=== PATIENT | male | born 1975 | race Caucasian/White ===

== ENCOUNTER 2019-10-13 10:48 | Emergency (ER) | payer OTHER, SELFPAY ==
--- NOTE | ~2019-10-13 | XR_ITS ---
EXAMINATION: XR ankle RT min 3V EXAM DATE: 10/13/2019 11:41 INDICATION: Initial encounter following injury, with pain of the right ankle. TECHNIQUE: Right ankle frontal, lateral and oblique projections obtained and reviewed. There is no p rior study for comparison. FINDINGS: The right ankle mortise appears intact. There are no acute fractures or dislocations iden tified. There is no subcutaneous gas. The soft tissue is unremarkable. There are no radiopaque fo reign bodies. IMPRESSION: No acute osseous findings. Reviewed, dictated and finalized at location B. IMPRESSION: No acute osseous findings.
[2019-10-13 11:05] VITALS: BP 130/72; PULSE 76; RESP 20; TEMP 36.6; O2SAT 98
--- NOTE | 2019-10-13 12:02 | ED.LOWEXIN ---
HPI - Extremity Injury (Lower) General Chief Complaint: Extremity Injury, Lower Stated Complaint: Ankle Time Seen by Provider: 10/13/19 10:57 Source: patient Mode of arrival: ambulatory Limitations: no limitations History of Present Illness HPI Narrative: Patient is a 44-year-old male who presents with right ankle injury that occurred last night patient rolled the ankle while ambulating patient notes moderate aching pain to the right anterior lateral aspect of the ankle denies other injuries or complaints patient on arrival resting comfortably in the room patient has not taken anything for his symptoms patient is able to bear weight but with considerable pain Related Data Allergies Allergy/AdvReac Type Severity Reaction Status Date / Time No Known Allergies Allergy Verified 10/13/19 11:07 Review of Systems Review of Systems: Narrative: CONSTITUTIONAL: Denies fever, chills, or sweats. EYES: Denies redness, or discharge. ENT: Denies rhinorrhea, congestion, sore throat, or otalgia. CARDIOVASCULAR: Denies chest pain, palpitations, or edema. RESPIRATORY: Denies cough or dyspnea. SKIN: Positive for bruising and swelling MUSCULOSKELETAL: Positive for right ankle pain NEUROLOGIC: Denies numbness, tingling Exam Narrative: Exam Narrative: GENERAL: Well-appearing, well-nourished, and in no acute distress. HEAD: Normocephalic, atraumatic. EYES: PERRLA and EOMI. ENT: Nares clear, no rhinorrhea or epistaxis. Mucous membranes moist. CHEST: Clear to auscultation. No respiratory distress. No wheezes rales or rhonchi HEART: Regular rate and rhythm. No murmur heard. EXTREMITIES: Tenderness of anterior right lateral ankle minimal swelling noted SKIN: Warm, dry, no rash. NEURO: No focal deficits. Alert and oriented x3. Neurovascularly intact. PSYCH: Normal mood and affect. Course Course Emergency Course: Patient in the room aware of case findings treatment plan and diagnosis agreeing to follow-up as directed or to return if symptoms worsen or concerns Vital Signs Vital signs: Vital Signs Temperature 97.9 F 10/13/19 11:05 Pulse Rate 76 10/13/19 11:05 Respiratory Rate 20 10/13/19 11:05 Blood Pressure 130/72 10/13/19 11:05 Pulse Oximetry 98 10/13/19 11:05 Temperature 97.9 F 10/13/19 11:05 Pulse Rate 76 10/13/19 11:05 Respiratory Rate 20 10/13/19 11:05 Blood Pressure 130/72 10/13/19 11:05 Pulse Oximetry 98 10/13/19 11:05 MDM - Extremity Injury (Lower) MDM Narrative Medical decision making narrative: Patients injury or pain is consistent with musculoskeletal etiology. No signs of neurological or vascular compromise on exam. Compartments and tisues are soft without signs of compartment syndrome. Pain is felt appropriate for further evaluation on an outpatient basis. Imaging Data Radiologist's impression: ITS Impressions Ankle X-Ray 10/13/19 11:43 IMPRESSION: No acute osseous findings. Discharge Plan Discharge Clinical Impression: Ankle sprain and strain Patient Disposition: Home, Self-Care Condition: Stable Instructions: Antibiotic Form, Ankle Strain (ED) Additional Instructions: Wear brace and use crutches. No weight on the affected leg until able to bear weight without pain. Ice and elevate extremity. Pain medication as needed and directed. Follow up with your doctor for further care in the next 7 days. Return if symptoms worsen or concerns Prescriptions: New naproxen 500 mg tablet 500 mg PO TID PRN (Reason: pain) Qty: 7 RF: 0 Follow-up/Referrals: Nicolas,LEE Erickson [Primary Care Provider] - Stand Alone Forms: Work/School Release IP
[2019-10-13 12:44] VITALS: BP 124/74; PULSE 70; RESP 20; TEMP 36.7; O2SAT 99
== END 2019-10-13 12:20 | disposition home or self-care (01) ==
PROVIDERS: Emergency Provider Emergency Medicine; PCP Physician Assistant
DX: S93.401A Sprain of unspecified ligament of right ankle, initial encounter (principal); S96.911A Strain of unspecified muscle and tendon at ankle and foot level, right foot, initial encounter; X50.9XXA Other and unspecified overexertion or strenuous movements or postures, initial encounter
CPT/HCPCS: 73610; 99283

== ENCOUNTER 2020-03-14 09:07 | Emergency (ER) | payer OTHER, SELFPAY ==
[2020-03-14 09:15] VITALS: BP 129/75; PULSE 90; RESP 16; TEMP 36.4; O2SAT 96
--- NOTE | 2020-03-14 09:22 | ED.SKABFB ---
HPI - Skin/Abscess/Foreign Bdy General Chief complaint: Skin/Abscess/Foreign Body Stated complaint: Rash Source: patient Mode of arrival: ambulatory Limitations: no limitations History of Present Illness HPI narrative: Patient is a 45-year-old male who presents complaining of poison brittnee to bilateral arms. Patient was helping a neighbor move a cat up tree, which had poison brittnee on it. Patient reports pruritic rash to bilateral arms x3 days. He has been using topical hydrocortisone and taking Benadryl with little relief. He denies all other complaints. MD complaint: rash Related Data Home Medications Medication Instructions Recorded Confirmed montelukast [Singulair] 10 mg PO DAILY 03/14/20 03/14/20 trazodone 100 mg PO HS 03/14/20 03/14/20 Allergies Allergy/AdvReac Type Severity Reaction Status Date / Time No Known Allergies Allergy Verified 03/14/20 09:18 Review of Systems Review of Systems: Narrative: CONSTITUTIONAL: Denies fever, chills, or sweats. EYES: Denies visual changes, redness, or discharge. ENT: Denies rhinorrhea, congestion, sore throat, or otalgia. CARDIOVASCULAR: Denies chest pain, palpitations, or edema. RESPIRATORY: Denies cough or dyspnea. GASTROINTESTINAL: Denies abdominal pain, nausea, vomiting, or diarrhea. GENITOURINARY: Denies dysuria or hematuria. SKIN: Reports pruritic rash to bilateral forearms arms MUSCULOSKELETAL: Denies back pain, joint pain, or myalgia. NEUROLOGIC: Denies headache, numbness, dizziness, or weakness. PSYCHIATRIC: Denies anxiety or depression. [facility] Family History Family History (Updated 03/14/20 @ 09:25 by ANA Vilchis) Other No significant family history Social History Social History Smoking status: Never smoker Second hand tobacco smoke exposure: No Alcohol intake: current Substance use: never Substance use type: does not use Gender identity (if verbalized by the patient): Male Exam Narrative: Exam Narrative: GENERAL: Well-appearing, well-nourished, and in no acute distress. HEAD: Normocephalic, atraumatic. EYES: No redness or drainage. Conjunctiva are normal. ENT: Mucous membranes pink and moist. CHEST: No respiratory distress. EXTREMITIES: Normal range of motion. SKIN: Erythematous, pruritic, intermittent linear rash to bilateral forearms NEURO: No focal deficits. Alert and oriented x3. Gait steady. PSYCH: Normal affect. No signs of depression or anxiety. Course Vital Signs Vital signs: Vital Signs Temperature 36.4 C L 03/14/20 09:15 Pulse Rate 90 03/14/20 09:15 Respiratory Rate 16 03/14/20 09:15 Blood Pressure 129/75 03/14/20 09:15 Pulse Oximetry 96 03/14/20 09:15 Temperature 36.4 C L 03/14/20 09:15 Pulse Rate 90 03/14/20 09:15 Respiratory Rate 16 03/14/20 09:15 Blood Pressure 129/75 03/14/20 09:15 Pulse Oximetry 96 03/14/20 09:15 Reviewed. Patient has been instructed to follow-up with his PCP regarding his blood pressure. MDM - Skin/Abscess/Foreign Bdy MDM Narrative Medical decision making narrative: Patient appears to have a contact dermatitis rash from poison brittnee. Patient to be prescribed triamcinolone cream. Differential Diagnosis Differential diagnosis: Likely viral exanthem, urticaria, cellulitis, eczema and contact dermatitis Critical Care Time Critical Care Time Critical Care Time: No Discharge Plan Discharge Clinical Impression: Contact dermatitis Qualifiers: Contact dermatitis type: irritant Contact dermatitis trigger: non-food plants Qualified Code(s): L24.7 - Irritant contact dermatitis due to plants, except food Patient Disposition: Home, Self-Care Condition: Stable Instructions: Poison Brittnee (ED) Additional Instructions: Use cream as directed. Follow-up with your PCP as needed. Prescriptions: New triamcinolone acetonide 0.5 % cream 1 applic topical BID Qty: 15 RF: 0 No Action tra
== END 2020-03-14 09:31 | disposition home or self-care (01) ==
PROVIDERS: Emergency Provider Nurse Practitioner; PCP Physician Assistant
DX: L24.7 Irritant contact dermatitis due to plants, except food (principal)
CPT/HCPCS: 99213; G0463

== ENCOUNTER 2020-12-04 11:19 | Emergency (ER) | payer OTHER, SELFPAY ==
[2020-12-04 11:29] VITALS: BP 135/55; PULSE 88; RESP 16; TEMP 36.6; O2SAT 99
--- NOTE | 2020-12-04 12:00 | ED.SKABFB ---
HPI - Skin/Abscess/Foreign Bdy General Chief complaint: Skin/Abscess/Foreign Body Stated complaint: Laceration on tip of finger on rt hand History of Present Illness HPI narrative: This is a 45-year-old male comes in complaining of cutting his finger on the refrigerator on some still object and he cannot get it to stop bleeding. According to patient he has had a tetanus shot at his primary care providers about a year ago. Related Data Home Medications Medication Instructions Recorded Confirmed montelukast [Singulair] 10 mg PO DAILY 03/14/20 12/04/20 trazodone 100 mg PO HS 03/14/20 12/04/20 Allergies Allergy/AdvReac Type Severity Reaction Status Date / Time No Known Allergies Allergy Verified 12/04/20 11:37 Review of Systems Review of Systems: CONSTITUTIONAL: Denies fever, chills, or sweats. EYES: Denies visual changes, redness, or discharge. ENT: Denies rhinorrhea, congestion, sore throat, or otalgia. CARDIOVASCULAR:Denies chest pain, palpitations, or edema. RESPIRATORY: Denies cough or dyspnea. GASTROINTESTINAL: Denies abdominal pain, nausea, vomiting, or diarrhea. GENITOURINARY: Denies dysuria or hematuria. SKIN:[Denies rash or itching. Right index finger laceration MUSCULOSKELETAL:Denies back pain, joint pain, or myalgia. NEUROLOGIC: Denies headache, numbness, or weakness. PSYCHIATRIC:Denies anxiety or depression PMFSH Family History Family History (Updated 03/14/20 @ 09:25 by ANA Vilchis) Other No significant family history Social History Social History Smoking status: Never smoker Second hand tobacco smoke exposure: No Alcohol intake: current Substance use: never Substance use type: does not use Gender identity (if verbalized by the patient): Male Comments At time as signature, I have reviewed and agree with nursing past medical, social, surgical and family history. Please see nursing chart for further information. There is no relevant family history pertinent to the presenting complaint. Exam Narrative: GENERAL:Well-appearing, well-nourished, and in no acute distress. HEAD:Normocephalic, atraumatic. EYES: PERRLA and EOMI. ENT: Nares clear, no rhinorrhea or epistaxis. Mucous membranes moist. NECK: Supple. CHEST: Clear to auscultation. No respiratory distress. HEART: Regular rate and rhythm. No murmur heard. Normal peripheral pulses. ABDOMEN: Soft, nontender, nondistended, normal active bowel sounds. EXTREMITIES: Normal range of motion. No edema. Left index finger with a small laceration SKIN: Warm, dry, no rash. NEURO: No focal deficits. Alert and oriented x3. 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 No tetanus needed Vital Signs Vital signs: Vital Signs Temperature 97.8 F 12/04/20 11:29 Pulse Rate 88 12/04/20 11:29 Respiratory Rate 16 12/04/20 11:29 Blood Pressure 135/55 L 12/04/20 11:29 Pulse Oximetry 99 12/04/20 11:29 Temperature 97.8 F 12/04/20 11:29 Pulse Rate 88 12/04/20 11:29 Respiratory Rate 16 12/04/20 11:29 Blood Pressure 135/55 L 12/04/20 11:29 Pulse Oximetry 99 12/04/20 11:29 Procedures Laceration Laceration 1: Date: 12/04/20 Time: 11:30 Site: hand Side (If applicable): left Description: linear Depth: simple, single layer Local Anesthetic: none Pre-repair: wound explored and irrigated ====== Skin Level ====== Skin layer closed with: dermabond ====== Subcutaneous Layer ====== ====== Muscle Layer ====== ====== Tendon Layer ====== Dressing: Cleansed with Betadine and saline applied some Dermabond and tube patient tolerated well finger splint given so patient does not bump the finger or reinjury MDM - Skin/Abscess/Foreign Bdy Differential Diagnosis Differential diagnosis: Likely abscess of skin or subcutaneous tissue and other (Laceration) Discharge Plan Discharge Clin
== END 2020-12-04 12:17 | disposition home or self-care (01) ==
PROVIDERS: Emergency Provider Nurse Practitioner Family; PCP Physician Assistant
DX: S61.210A Laceration without foreign body of right index finger without damage to nail, initial encounter (principal); W45.8XXA Other foreign body or object entering through skin, initial encounter
CPT/HCPCS: 12001; 99213; G0463

== ENCOUNTER 2021-11-05 11:00 | Outpatient (RCR) | payer OTHER, SELFPAY ==
--- NOTE | 2021-09-13 15:57 | OTOPEVAL ---
OCCUPATIONAL THERAPY INITIAL EVALUATION REPORT 09/13/21 Thank you for referring Maik Mcguire to [facility].? The patient is scheduled to be seen for therapy? 1-2x/week for 4 weeks. Please review, sign, date and return this plan of care RIO. I agree with and certify that the following plan of care is medically necessary. Referring Physician Date Referring Provider: Fitz Chow, *OT Outpatient Evaluation Start: 09/13/21 14:43 Outpatient Past Medical History Neurological History Hx Other Neurological Disorders Yes: insomnia HEENT History Hx Tonsillectomy Yes Hx Other HEENT Disorders Yes: sinuses Evaluation Information Problem Diagnosis Traumatic dislocation, PIP joint Additional Evaluation Detail Initial injury ~2 months ago. Delay in seeking medical attention. Surgery was 1 month after injury. Subjective Information Patient underwent ORIF of the Query Text:As Reported By Patient/ ring finger PIP joint. He had Family a percutaneous pin as well as screws placed to stabilize the joint about a month ago. Pin was removed 09/10/21. He presents today with a PIP extension block splint donned. Patient has returned back to work - states its going okay, does a lot of computer work, no manual labor. States he is eager to get back to the gym. He has been doing household tasks left handed. 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 Hand Dominance Right Pain Assessment Timing of Pain Assessment Timing of Pain Assessment Assessment Pain Scale Pain Scale Used Numeric (1 - 10) Self Report Pain Assessment Right Finger, Ring Reported Pain Level 2 Pain Description Aching,Soreness Pain Frequency Continuous Lowest Pain Intensity 2 Greatest Pain Intensity 4 Pain Score Pain Score 2: Self Report Interventions Used Interventions Used By Clinicians Education,Exercise Upper Extremity Range of Motion Wrist Range of Motion Right Wrist Flexion - Active 45 Wrist Extension - Active 55 Finger Range of Motion Right Index Finger MCP Joint Flexion - Active 85 Index Finger PIP Joint Flexion - Active 90 Index Finger DIP Joint Flexion - Active 75 Index Finger Tip to Base of Palm - 0 Active
--- NOTE | 2021-09-24 08:26 | PCOTNOTE ---
Patient did not show up for scheduled appointment this date. Called patient and unable to leave a voicemail due to the voicemail box being full.
--- NOTE | 2021-10-03 10:59 | PCOTNOTE ---
Patient did not show up for scheduled appointment this date. Called patient and informed him of his next appt, Thursday. Stated that if he does not show he will be discharged.
--- NOTE | 2021-10-10 11:36 | OTOPEVAL ---
OCCUPATIONAL THERAPY RE-EVALUATION REPORT AND POC UPDATE 10/10/21 Maik is a 46 year-old, right handed male who presents to outpatient hand therapy following closed traumatic dislocation of the right ring finger PIP joint. He is s/p percutaneous pinning as well as ORIF with screws. Therapy has been focusing on improving functional flexibility of the right hand through active/passive ROM, thermal modalities, scar mobilization, and manual therapy. As described below, he is making steady progress toward a functional fist. He continues to have residual stiffness and will benefit from continued skilled treatment to facilitate optimal return of functional hand use. Thank you for referring Maik Mcguire to [facility].? The patient is scheduled to be seen for therapy?1x/week for 3 weeks. Please review, sign, date and return this plan of care RIO. I agree with and certify that the following plan of care is medically necessary. 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 Query Text:As Reported By Patient/ He states I can actually grab Family things now. He reports that he continues to have residual stiffness. Pain Assessment Timing of Pain Assessment Timing of Pain Assessment Assessment Pain Scale Pain Scale Used Numeric (1 - 10) Self Report Pain Assessment Right Finger, Ring Reported Pain Level 0 Lowest Pain Intensity 0 Greatest Pain Intensity 6 Pain Score Pain Score 0: Self Report Upper Extremity Range of Motion Wrist Range of Motion Right Wrist Flexion - Active 75 Wrist Extension - Active 65 Wrist Range of Motion Comments Flexion improved from 45* Extension improved from 55* Finger Range of Motion Right Ring Finger MCP Joint Flexion - Active 90 Ring Finger PIP Joint Flexion - Active 75 Ring Finger PIP Joint Flexion - Passive 90 Ring Finger PIP Joint Extension - Active -35 Ring Finger DIP Joint Flexion - Active 10 Ring Finger DIP Joint Flexion - Passive 60 Ring Finger Tip to Base of Palm - Active 3 Little Finger MCP Joint Flexion - Active 95 Little Finger PIP Joint Flexion - Active 80 Little Finger DIP Joint Flexion - Active 55 Little Finger Tip to Base of Palm - 1 Active Finger Range of Motion Comments Measurements from 09/13/21: Ring finger: MCP flex 85* PIP flex 50* PIP ext -40 DIP flex 0* Tip to palm: 6 cm gap Small finger: MCP flex 90* PIP flex 60* DIP flex 15* Tip to palm: 5 cm gap 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
--- NOTE | 2021-10-31 08:49 | PCOTNOTE ---
Patient did not show up for scheduled appointment this date. Called patient who states he was called into work and forgot to call to cancel. Rescheduled him for next week.
--- NOTE | 2021-11-05 11:57 | OTOPEVAL ---
OCCUPATIONAL THERAPY RE-EVALUATION REPORT AND POC UPDATE 11/05/21 Maik is a 46 year-old, right handed male who presents to outpatient hand therapy following closed traumatic dislocation of the right ring finger PIP joint. He is s/p percutaneous pinning as well as ORIF with screws. Therapy has been focusing on improving functional flexibility of the right hand through active/passive ROM, thermal modalities, scar mobilization, and manual therapy. He continues to make steady progress toward a functional fist. However, he continues to have residual stiffness limiting gross flexion and extension of the finger. He will benefit from one more round of therapy as he may be beginning to reach a plateau with functional ROM. Continued skilled treatment to facilitate optimal return of functional hand use. Thank you for referring Maik Mcguire to [facility].? The patient is scheduled to be seen for therapy? 1x/week for 3-4 weeks. Please review, sign, date and return this plan of care RIO. I agree with and certify that the following plan of care is medically necessary. 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 He Family states he is having more pain recently, attributing this to the new splint he has been wearing for PIP extension. He reports that he continues to have residual stiffness despite working on ROM daily. Pain Assessment Timing of Pain Assessment Timing of Pain Assessment Re-assessment Pain Scale Pain Scale Used Numeric (1 - 10) Self Report Pain Assessment Right Finger, Ring Reported Pain Level 2 Lowest Pain Intensity 0 Greatest Pain Intensity 6 Pain Score Pain Score 2: Self Report Interventions Used Interventions Used By Clinicians Exercise,Paraffin Upper Extremity Range of Motion Finger Range of Motion Right Ring Finger MCP Joint Flexion - Active 90 Ring Finger PIP Joint Flexion - Active 90 Ring Finger PIP Joint Extension - Active -40 Ring Finger PIP Joint Extension - -30 Passive Ring Finger DIP Joint Flexion - Active 10 Ring Finger DIP Joint Flexion - Passive 60 Ring Finger Tip to Base of Palm - Active 1 Little Finger MCP Joint Flexion - Active 90 Little Finger PIP Joint Flexion - Active 90 Little Finger DIP Joint Flexion - Active 55 Little Finger Tip to Base of Palm - 0 Active Finger Range of Motion Comments Measurements from 10/10/21: Ring finger: MCP flex 90* PIP flex 75* PIP ext -35* DIP flex 10* Tip to palm: 3
--- NOTE | 2021-11-20 09:51 | PCOTNOTE ---
Patient did not show up for scheduled appointment this date. Did not answer phone call and voicemail was full.
--- NOTE | 2021-11-26 10:28 | PCOTNOTE ---
OCCUPATIONAL THERAPY DISCHARGE NOTIFICATION 11/26/21 Patient:Maik Sanchez Mcguire Date of :1975 Patient has not returned for any further treatments since his last re-evaluation on 11/05/2021, therefore he will be discharged at this time. He has not shown for several appointments and we are unable to get a hold of him. Please refer to most recent progress report from 11/05/21 for most updated information on the patient's therapy progress. Therapy goals have not been met. Thank you for referring this patient to [facility]. Please review, sign, date and return this discharge summary RIO. I have been updated about the patient's current status and I agree with discharge from the above service at this time. Referring Physician Date Referring Provider: Fitz Chow,
== END 2021-11-26 16:16 | disposition home or self-care (01) ==
LOC: ANHOT 11:00
PROVIDERS: PCP Physician Assistant; Referring Provider Orthopaedic Surgery Hand Surgery; Visit Provider Orthopaedic Surgery Hand Surgery
DX: S63.284D Dislocation of proximal interphalangeal joint of right ring finger, subsequent encounter (principal)
CPT/HCPCS: 97018; 97110; 97140; 97165

== ENCOUNTER 2024-04-09 15:49 | Emergency (ER) | payer OTHER, SELFPAY ==
[2024-04-09 15:58] VITALS: BP 148/83; PULSE 85; RESP 18; TEMP 36.5; O2SAT 100
--- NOTE | 2024-04-09 16:16 | ED.URI ---
HPI - URI/Sore Throat General Chief Complaint: Upper Respiratory Infection Stated Complaint: Sinus/Cough Time Seen by Provider: 04/09/24 16:16 Source: patient Mode of arrival: ambulatory Limitations: no limitations History of Present Illness HPI Narrative: 49 yo M presents with c/o cough, chest congestion for 2 wks. hx of [place] but states hasnt needed inhaler for long time . Afebrile. sick of cough . worse at night. Increased fatigue, SOB with exertion. Taking OTC mucinex. all systems reviewed and negative except as noted above. Related Data Home Medications ?Medication ?Instructions ?Recorded ?Confirmed ?Last Taken ?Type trazodone 100 mg tablet 100 mg PO HS 03/14/20 04/09/24 Unknown History bupropion HCl 150 mg 24 hr tablet, mg PO 04/09/24 Unknown History extended release Allergies Allergy/AdvReac Type Severity Reaction Status Date / Time No Known Allergies Allergy Verified 04/09/24 16:00 Review of Systems Review of Systems: CONSTITUTIONAL: Denies fever, chills, or sweats. EYES: Denies visual changes, redness, or discharge. ENT: Reports rhinorrhea, congestion. Denies sore throat, or otalgia. CARDIOVASCULAR: Denies chest pain, palpitations, or edema. RESPIRATORY: reports cough, chest congestion and dyspnea with exertion. GASTROINTESTINAL: Denies abdominal pain, nausea, vomiting, or diarrhea. GENITOURINARY: Denies dysuria or hematuria. SKIN: Denies rash or itching. MUSCULOSKELETAL: Denies back pain, joint pain, or myalgia. NEUROLOGIC: Denies headache, numbness, or weakness. PSYCHIATRIC: Denies anxiety or depression. All other systems reviewed are negative, except as documented in HPI. [facility]LY [facility] Family History Family History Other No significant family history Social History Social History Smoking status: Never smoker Second hand tobacco smoke exposure: No Alcohol intake: current Substance use: never Substance use type: does not use Gender identity (if verbalized by the patient): Male Comments At time of signature, agree with nursing past medical, surgical, social and family history. There is no relevant family history pertinent to the presenting complaint. Exam Narrative: GENERAL: This is a well-nourished, well-developed patient, in no apparent distress. HEAD: normocephalic, atraumatic. EYES: PERRL. Sclera clear/white. Vision is grossly intact. EARS: External ears normal, auditory canals clear and without drainage, TMs normal without perforation. Hearing grossly intact. NOSE: External nose normal with no obvious nasal discharge, nares without redness, no rhinorrhea. THROAT: Mucous membranes moist, posterior pharynx clear. NECK: Neck supple, non-tender without lymphadenopathy, masses or thyromegaly. CARDIOVASCULAR: Regular rate and rhythm without murmurs, gallops, or rubs. RESPIRATORY: crackles to L upper lung field. Breath sounds equal bilaterally. No wheezes, rales, or rhonchi. SKIN: warm, Dry, intact with no suspicious lesions or rash, good texture and turgor. NEURO: awake, alert, and oriented to person, place and time. There were no obvious focal neurologic abnormalities. EXTREMITIES: No joint tenderness, effusion, or edema noted. Course Course Level of Care: Express Care Visit Vital Signs Vital signs: Vital Signs Temperature 36.5 C 04/09/24 15:58 Pulse Rate 85 04/09/24 15:58 Respiratory Rate 18 04/09/24 15:58 Blood Pressure 148/83 H 04/09/24 15:58 Pulse Oximetry 100 04/09/24 15:58 Temperature 36.5 C 04/09/24 15:58 Pulse Rate 85 04/09/24 15:58 Respiratory Rate 18 04/09/24 15:58 Blood Pressure 148/83 H 04/09/24 15:58 Pulse Oximetry 100 04/09/24 15:58 reviewed MDM - URI/Sore Throat MDM Narrative Medical decision making narrative: crackles to L upper lung field. will treat with abx. nontoxic, no resp distress. Patient is aware of diagnosis, understands and agrees to treatment plan. Anticipatory guidance given. Patient agrees to follow-up as directed and is aware of reasons to seek care at the emergency department. Portions of this record may have been created with voice recognition software Differential Diagnosis Differential diagnosis: Likely upper respiratory infection, viral infection, bronchitis and influenza Discharge Plan Discharge Clinical Impression: Pneumonia Patient Disposition: Home, Self-Care Condition: Stable Instructions: Antibiotic Form, Pneumonia (ED) Additional Instructions: take medications as prescribed. Take Tylenol or ibuprofen every 6-8 hours as needed for pain and fever. Drink at least 64 oz of water a day. Follow-up with your primary care physician if symptoms are not improving. Patient Language: Slovenian Prescriptions: New doxycycline hyclate 100 mg capsule 100 mg PO BID 7 Days Qty: 14 0RF benzonatate 200 mg capsule 200 mg PO TID PRN (Reason: cough) Qty: 20 0RF prednisone 20 mg tablet 40 mg PO DAILY 5 Days Qty: 10 0RF albuterol sulfate 90 mcg/actuation HFA aerosol inhaler 2 puff inhalation Q4-6H PRN (Reason: shortness of breath or wheezing) Qty: 8.5 0RF (DME) Aerochamber Plus Z Stat Spacer See Rx Instructions .Route Qty: 1 0RF Rx Instructions: As directed No Action trazodone 100 mg Tablet 100 mg PO HS bupropion HCl 150 mg tablet extended release 24 hr PO Follow-up/Referrals: Nicolas,LEE Erickson [Primary Care Provider] - Time of Disposition: 16:22
== END 2024-04-09 16:30 | disposition home or self-care (01) ==
PROVIDERS: Emergency Provider Nurse Practitioner Family; PCP Physician Assistant
DX: J18.9 Pneumonia, unspecified organism (principal)
CPT/HCPCS: 99213; G0463